=== PATIENT | female | born 1975 | race African-American/Black ===

== ENCOUNTER → 2018-05-18 | Outpatient (CLI) | payer OTHER ==
--- NOTE | 2018-05-18 11:32 | EKG ---
[facility] [address] [place] [address] Test Date: 2018-05-18 Test Time: 11:30:03 Pat Name: ANJEL ENNIS Department: Room: Gender: F Assembler Tester: KAMRAN : 1975 Requested By: CHAS WHALEN Order Number: [id number] Reading MD: Sean Barron MD Measurements Intervals [place] Rate: 88 P: 59 CO: 170 QRS: 87 QRSD: 84 T: 43 QT: 358 QTc: 437 Interpretive Statements SINUS RHYTHM Electronically Signed On 05-18-2018 13:47:38 TIPPLE WORKER by Sean Barron MD
[2018-05-18 11:46] LABS: BASO % 0 % (0-3); BILIRUBIN,URINE NEGATIVE (NEG); CLARITY,URINE CLEAR; COLOR,URINE YELLOW; EOS # 0.1 x10^3/uL (0.0-0.7); EOS % 1 % (0-3); HEMATOCRIT 40.1 % (36.0-47.0); HEMOGLOBIN 13.4 g/dL (12.0-15.5); LYMPH # 2.9 x10^3/uL (1.0-4.8); LYMPH % 44 % (24-48); MEAN CORPUSCULAR HEMOGLOBIN 27 pg (25-35); MEAN CORPUSCULAR HGB CONC 33 g/dL (31-37); MEAN CORPUSCULAR VOLUME 82 fL (79-100); MONO # 0.6 x10^3/uL (0.0-1.1); MONO % 10 % (0-9); NEUT # 2.9 x10^3uL (1.8-7.7); NEUT % 45 % (31-73); NITRITE,URINE NEGATIVE (NEG); PLATELET COUNT 234 x10^3/uL (140-400); PROTEIN,URINE NEGATIVE (NEG-TRACE); RED BLOOD COUNT 4.88 x10^6/uL (3.50-5.40); RED CELL DISTRIBUTION WIDTH 14.2 % (11.5-14.5); WHITE BLOOD COUNT 6.5 x10^3/uL (4.0-11.0)
[2018-05-18 12:00] LABS: BACTERIA,URINE FEW /HPF (0-FEW); SQUAMOUS EPITHELIAL CELL,UR FEW /LPF
[2018-05-18 12:09] LABS: ALBUMIN 3.6 g/dL (3.4-5.0); ALBUMIN/GLOBULIN RATIO 0.9 (1.0-1.7); CALCIUM 8.9 mg/dL (8.5-10.1); CREATININE 0.8 mg/dL (0.6-1.0); GFR 95.6; POTASSIUM 3.9 mmol/L (3.5-5.1); TOTAL BILIRUBIN 0.2 mg/dL (0.2-1.0); TOTAL PROTEIN 7.8 g/dL (6.4-8.2)
== END | disposition home or self-care (01) ==
LOC: LAB 11:04
PROVIDERS: ATTEND Anesthesiology Pain Medicine
DX: Z01.818 Encounter for other preprocedural examination (principal); M96.1 Postlaminectomy syndrome, not elsewhere classified; M54.16 Radiculopathy, lumbar region
CPT/HCPCS: 36415; 80053; 81001; 85025; 93005